=== PATIENT | male | born 1990 ===

== ENCOUNTER → 2023-06-21 | Day surgery (SDC) | payer OTHER | END | disposition home or self-care (01) | LOC: ADM 06-19 13:00 → AMB-ENDOS 07:02 | PROVIDERS: ATTEND Colon & Rectal Surgery | DX: D12.3 Benign neoplasm of transverse colon (principal); K52.9 Noninfective gastroenteritis and colitis, unspecified; K62.89 Other specified diseases of anus and rectum; K59.4 Anal spasm; Z20.822 Contact with and (suspected) exposure to COVID-19 ==